=== PATIENT | female | born 1990 | race Caucasian/White ===

== ENCOUNTER → 2017-09-19 | Outpatient (CLI) | payer OTHER ==
[2017-09-19 11:56] LABS: PLATELET COUNT 271 x10^3mcL (130-400)
[2017-09-19 12:02] LABS: ALBUMIN 4.1 g/dL (3.4-5.0); ALKALINE PHOSPHATASE 46 U/L (46-116); ALT/SGPT 17 U/L (14-59); AST/SGOT 14 U/L (15-37); BILIRUBIN DIRECT 0.17 mg/dL (0.0-0.2); CALCIUM 9.1 mg/dL (8.5-10.1); CARBON DIOXIDE 26.9 mmol/L (21-32); CHLORIDE SERUM 106 mmol/L (98-107); CHOLESTEROL 150 mg/dL (<200); CREATININE SERUM 0.8 mg/dL (0.6-1.0); FREE T4 1.05 ng/dL (0.76-1.46); GFR1 > 60 mL/min; GLUCOSE SERUM 79 mg/dL (74-106); SODIUM SERUM 138 mmol/L (136-145); TOTAL PROTEIN, SERUM 7.8 g/dL (6.4-8.2)
[2017-09-19 12:04] LABS: HDL CHOLESTEROL 76 mg/dL (40-60); TRIGLYCERIDES 29 mg/dL (<150)
[2017-09-19 12:08] LABS: RED CELL DISTRIBUTION WIDTH 15.5 % (11.5-14.5)
== END | disposition home or self-care (01) ==
LOC: LB 11:07
DX: Z00.00 Encounter for general adult medical examination without abnormal findings (principal)
CPT/HCPCS: 84439